=== PATIENT | female | born 1985 | race African-American/Black ===

== ENCOUNTER 2018-04-11 04:30 | Emergency (ER) | payer OTHER ==
[~2018-04-11] VITALS: Ht 167.6 cm; Wt 66.0 kg
[2018-04-11] MEDS ORDERED: ACETAMINOPHEN 325MG TABLET PO PRN (05:15)
[2018-04-11 06:07] LABS: BASOPHILS % 0.4 % (0.0-2.0); EOSINOPHILS % 0.4 % (0.0-5.0); HEMOGLOBIN. 12.6 g/dL (12.0-16.0); LYMPHOCYTES % 29.9 % (20.0-50.0); MEAN CORPUSCULAR HEMOGLOBIN 33.4 pg (28.0-32.0); MEAN CORPUSCULAR VOLUME 95.8 fL (81.0-99.0); MEAN PLATELET VOLUME 6.9 fl (7.4-10.4); MONOCYTES % 6.9 % (2.0-8.0); NEUTROPHILS % 62.4 % (40.0-76.0); PLATELET 246 x1000/uL (130-400); RED BLOOD CELL COUNT 3.76 mill/uL (4.2-5.4); RED CELL DISTRIBUTION WIDTH 12.8 % (11.6-14.6)
[2018-04-11 06:12] LABS: CHLORIDE 106 mEq/L (98-107)
[2018-04-11 06:36] LABS: B-HCG QUANTITATIVE 10809 mIU/mL (<3)
[2018-04-11 07:14] LABS: CLARITY URINE CLOUDY (CLEAR); COLOR URINE DARK YELLOW (YELLOW); KETONES URINE TRACE (NEGATIVE); LEUKOCYTE ESTERASE URINE 1+ (NEGATIVE); NITRITE URINE NEGATIVE (NEGATIVE); OCCULT BLOOD URINE NEGATIVE (NEGATIVE); PH URINE 5.5 (4.5-8.0); PROTEIN URINE 2+ (NEGATIVE); SPECIFIC GRAVITY URINE 1.025 (1.005-1.030)
[2018-04-11 07:30] LABS: *AMPHETAMINES SCREEN URINE NEGATIVE (NEGATIVE); *BARBITURATES SCREEN URINE NEGATIVE (NEGATIVE); *BENZODIAZEPINES SCREEN URINE NEGATIVE (NEGATIVE)
[2018-04-11 07:31] LABS: METHADONE URINE SCREEN NEGATIVE (NEGATIVE); OPIATES URINE SCREEN NEGATIVE (NEGATIVE); PHENCYCLIDINE URINE SCREEN NEGATIVE (NEGATIVE)
[2018-04-11 07:38] LABS: *COCAINE SCREEN URINE PRESUMTIVE POSITIVE (NEGATIVE)
[2018-04-11 07:39] LABS: CANNABINOID URINE SCREEN PRESUMTIVE POSITIVE (NEGATIVE)
[2018-04-11] MEDS ORDERED: ACETAMINOPHEN 325MG TABLET PO ONE (10:45)
[2018-04-11 14:42] VITALS: BP 98/48
== END 2018-04-11 14:44 | disposition home or self-care (01) ==
LOC: ER 04:30
DX: O23.12 Infections of bladder in pregnancy, second trimester (principal); O9A.312 Physical abuse complicating pregnancy, second trimester; F17.200 Nicotine dependence, unspecified, uncomplicated; F12.10 Cannabis abuse, uncomplicated; Z3A.16 16 weeks gestation of pregnancy
CPT/HCPCS: 36415; 76705; 76815; 80305; 81025; 84702; 86850; 86900; 99285

== ENCOUNTER 2020-11-19 05:47 | Observation (INO) | payer OTHER ==
[~2020-11-19] VITALS: Ht 162.6 cm; Wt 72.6 kg
== END 2020-11-19 16:02 | disposition home or self-care (01) ==
LOC: 8 EST LDRP 05:47
PROVIDERS: ADMIT Obstetrics & Gynecology; ATTEND Obstetrics & Gynecology
DX: O36.8120 Decreased fetal movements, second trimester, not applicable or unspecified (principal); Z3A.27 27 weeks gestation of pregnancy; R10.9 Unspecified abdominal pain; O26.892 Other specified pregnancy related conditions, second trimester
CPT/HCPCS: 59025; 76805; 76818; 99281; G0378

== ENCOUNTER 2021-01-23 06:21 | Inpatient (IN) | payer OTHER ==
[~2021-01-23] VITALS: Ht 160 cm; Wt 65.8 kg
[2021-01-23] MEDS ORDERED: METHYLERGONOVINE MALEATE 0.2 MG/ML IM PRN (06:45)
[2021-01-23] MEDS ORDERED: NALOXONE HCL 0.4 MG/ML 1ML VIAL IM PRN (06:45)
[2021-01-23] MEDS ORDERED: LIDOCAINE HCL 1% 20ML VIAL (Pyxis) INJ INFIL SCH (06:45)
[2021-01-23] MEDS ORDERED: PENICILLIN G POTASSIUM 5 MMU in DEXT 5% WATER 100 ML IV NR (07:00)
[2021-01-23] MEDS ORDERED: DEXT 5%/LR + PITOCIN 20UNITS/L 1,000 ML IV SCH ×2 (07:00→11:45)
[2021-01-23 08:20] LABS: BASOPHILS % 0.6 % (0.0-2.0); EOSINOPHILS % 0.5 % (0.0-5.0); HEMATOCRIT. 36.2 % (36.0-48.0); HEMOGLOBIN. 12.2 g/dL (12.0-16.0); LYMPHOCYTES % 17.4 % (20.0-50.0); MEAN CORPUSCULAR HEMOGLOBIN 29.2 pg (28.0-32.0); MEAN CORPUSCULAR VOLUME 86.3 fL (81.0-99.0); MEAN PLATELET VOLUME 7.7 fl (7.4-10.4); MONOCYTES % 8.7 % (2.0-8.0); NEUTROPHILS % 72.8 % (40.0-76.0); PLATELET 316 x1000/uL (130-400); RED BLOOD CELL COUNT 4.19 mill/uL (4.2-5.4); RED CELL DISTRIBUTION WIDTH 15.4 % (11.6-14.6)
[2021-01-23 08:30] LABS: CHLORIDE 108 mEq/L (98-107)
[2021-01-23 08:32] LABS: INR 0.9; PARTIAL THROMBOPLASTIN TIME 28.5 sec (23.4-31.0); PROTHROMBIN TIME 10.2 sec (9.6-11.0)
[2021-01-23] MEDS: LACTATED RINGERS 1,000 ML IV SCH ×2 (08:34→09:44)
[2021-01-23] MEDS ORDERED: AMPICILLIN 2,000 MG in SODIUM CHLORIDE 0.9% 100 ML IV NR (09:00)
[2021-01-23 09:07] LABS: HEPATITIS B SURFACE ANTIGEN NEGATIVE
[2021-01-23] MEDS ORDERED: CEFAZOLIN SODIUM 1000MG/VIAL ONE (09:58)
[2021-01-23] MEDS ORDERED: FENTANYL CITRATE/PF 50MCG/ML 2ML VIAL ONE (09:58)
[2021-01-23] MEDS ORDERED: MORPHINE SULFATE/PF 1MG/ML 10ML AMP ONE (09:58)
[2021-01-23] MEDS ORDERED: MIDAZOLAM HCL 2 MG/2 ML VIAL ONE (10:26)
[2021-01-23] MEDS ORDERED: PHENYLEPHRINE HCL 10 MG/ML 1ML (IV VIAL) IV ONE (10:29)
[2021-01-23 10:58] LABS: CLARITY URINE CLEAR (CLEAR); COLOR URINE YELLOW (YELLOW); KETONES URINE 1+ (NEGATIVE); LEUKOCYTE ESTERASE URINE NEGATIVE (NEGATIVE); NITRITE URINE NEGATIVE (NEGATIVE); OCCULT BLOOD URINE NEGATIVE (NEGATIVE); PH URINE 6.5 (4.5-8.0); PROTEIN URINE NEGATIVE (NEGATIVE); SPECIFIC GRAVITY URINE 1.016 (1.005-1.030)
[2021-01-23] MEDS ORDERED: KETOROLAC 30MG/ML VIAL IV PRN ×2 (11:00→11:45)
[2021-01-23] MEDS ORDERED: MEPERIDINE HCL/PF 25MG/ML CPJ IV PRN (11:00)
[2021-01-23] MEDS ORDERED: DIPHENHYDRAMINE 50MG/ML VIAL IV PRN (11:00)
[2021-01-23] MEDS ORDERED: LABETALOL 5MG/ML SYR 20 MG/4 ML SYRINGE IV PRN (11:00)
[2021-01-23] MEDS ORDERED: HYDROMORPHONE HCL/PF 2MG/ML CPJ IV PRN (11:00)
[2021-01-23] MEDS ORDERED: ONDANSETRON HCL 4MG/2ML INJ IV PRN (11:00)
[2021-01-23] MEDS ORDERED: BUTORPHANOL TARTRATE 2 MG/ML VIAL IM PRN (11:00)
[2021-01-23 11:28] LABS: *AMPHETAMINES SCREEN URINE NEGATIVE (NEGATIVE); CANNABINOID URINE SCREEN NEGATIVE (NEGATIVE); METHADONE URINE SCREEN NEGATIVE (NEGATIVE); OPIATES URINE SCREEN NEGATIVE (NEGATIVE); PHENCYCLIDINE URINE SCREEN NEGATIVE (NEGATIVE)
[2021-01-23 11:29] LABS: *BARBITURATES SCREEN URINE NEGATIVE (NEGATIVE); *BENZODIAZEPINES SCREEN URINE NEGATIVE (NEGATIVE)
[2021-01-23] MEDS ORDERED: PENICILLIN G POTASSIUM 2.5 MMU in DEXTROSE 5% WATER 50 ML IV SCH (11:30)
[2021-01-23 11:33] LABS: *COCAINE SCREEN URINE PRESUMTIVE POSITIVE (NEGATIVE)
[2021-01-23] MEDS ORDERED: IBUPROFEN 400MG TABLET PO PRN (11:45)
[2021-01-23] MEDS ORDERED: RHO(D) IMMUNE GLOBULIN 300 MCG/SYR IM PRN (11:45)
[2021-01-23] MEDS ORDERED: ACETAMINOPHEN WITH CODEINE 300/30MG TABLET PO PRN (11:45)
[2021-01-23] MEDS ORDERED: BISACODYL 10MG SUPP PR PRN (11:45)
[2021-01-23] MEDS ORDERED: DEXT IV NR (12:00)
[2021-01-23] MEDS ORDERED: LACTATED RINGERS IV NR (12:00)
[2021-01-23] MEDS ORDERED: POTASSIUM ACETATE IV NR (12:00)
[2021-01-23] MEDS ORDERED: OXYTOCIN IV NR (12:00)
[2021-01-23 14:00] VITALS: BP 111/75
[2021-01-23] MEDS ORDERED: AMPICILLIN 1,000 MG in SODIUM CHLORIDE 0.9% 50 ML IV SCH (15:00)
[2021-01-23 17:30] VITALS: BP 115/78
[2021-01-23 20:00] VITALS: BP 113/76
[2021-01-24] VITALS: BP 112/78
[2021-01-24 07:01] LABS: BASOPHILS % 0.2 % (0.0-2.0); EOSINOPHILS % 0.2 % (0.0-5.0); HEMATOCRIT. 39.3 % (36.0-48.0); HEMOGLOBIN. 12.8 g/dL (12.0-16.0); LYMPHOCYTES % 13.4 % (20.0-50.0); MEAN CORPUSCULAR HEMOGLOBIN 28.4 pg (28.0-32.0); MEAN CORPUSCULAR VOLUME 87.4 fL (81.0-99.0); MEAN PLATELET VOLUME 7.7 fl (7.4-10.4); MONOCYTES % 8.5 % (2.0-8.0); NEUTROPHILS % 77.7 % (40.0-76.0); PLATELET 304 x1000/uL (130-400); RED CELL DISTRIBUTION WIDTH 15.9 % (11.6-14.6)
[2021-01-24] MEDS ORDERED: FERROUS SULFATE 325MG TABLET PO SCH (07:30)
[2021-01-24 07:51] VITALS: BP 115/80
[2021-01-24 08:00] VITALS: BP 121/74
[2021-01-24] MEDS ORDERED: POTASSIUM CHLORIDE 20MEQ TABLET SR PO SCH (08:30)
[2021-01-24] MEDS ORDERED: PRENATAL VIT/FE FUMARATE/FA TABLET PO SCH (09:00)
[2021-01-24 16:30] VITALS: BP 117/72
[2021-01-24 20:00] VITALS: BP 115/61
[2021-01-24] MEDS: IBUPROFEN 800MG TABLET PO PRN (23:49)
[2021-01-25 04:00] VITALS: BP 121/78
[2021-01-25] MEDS: IBUPROFEN 800MG TABLET PO PRN ×2 (06:19→22:09)
[2021-01-25 07:30] VITALS: BP 124/88
[2021-01-25 16:06] VITALS: BP 120/78
[2021-01-25 20:00] VITALS: BP 122/99
[2021-01-26 04:14] VITALS: BP 123/86
[2021-01-26] MEDS ORDERED: IBUP-2030 PO (06:26)
[2021-01-26 07:30] VITALS: BP 120/84
[2021-02-01 05:08] LABS: COCAINE CONFIRMATION URINE Positive (.)
== END 2021-01-26 16:25 | disposition home or self-care (01) | DRG 540 ==
LOC: 8 EST LDRP 06:21 → OBSVTOIN 06:21 → 8EST 13:00
PROVIDERS: ADMIT Obstetrics & Gynecology; ATTEND Obstetrics & Gynecology
PROC: 10D00Z1 Extraction of Products of Conception, Low, Open Approach (ICD-10-PCS; principal; 2021-01-23)
DX: O32.2XX0 Maternal care for transverse and oblique lie, not applicable or unspecified (principal); O99.324 Drug use complicating childbirth; O77.9 Labor and delivery complicated by fetal stress, unspecified; F14.10 Cocaine abuse, uncomplicated; Z37.0 Single live birth; Z3A.38 38 weeks gestation of pregnancy
CPT/HCPCS: 36415; 76805; 76818; 80051; 80053; 80305; 80353; 81003; 85025; 86592; 86703; 86762; 86850; 86900; 87340; 88307; 99281; G0378; J0290; J0690; J1885; J2250; J2274; J2310; J2370; J2540; J2590; J3010; J3490; J7050; J7060; J7120; J7121; A4315

== ENCOUNTER 2022-01-12 07:41 | Emergency (ER) | payer OTHER ==
[~2022-01-12] VITALS: Ht 152.4 cm; Wt 64.0 kg
[~2022-01-12 07:41] MED LIST: IBUP-2030 PO
[2022-01-12 07:44] VITALS: BP 127/85
[2022-01-12] MEDS ORDERED: HYDROCODONE/ACETAMINOPHEN 5/325MG TABLET PO ONE (08:30)
[2022-01-12 09:43] LABS: BASOPHILS % 0.4 % (0.0-2.0); EOSINOPHILS % 0.1 % (0.0-5.0); HEMATOCRIT. 38.9 % (36.0-48.0); HEMOGLOBIN. 13.4 g/dL (12.0-16.0); LYMPHOCYTES % 19.6 % (20.0-50.0); MEAN CORPUSCULAR HEMOGLOBIN 31.8 pg (28.0-32.0); MEAN CORPUSCULAR VOLUME 92.1 fL (81.0-99.0); MEAN PLATELET VOLUME 6.8 fl (7.4-10.4); NEUTROPHILS % 70.9 % (40.0-76.0); PLATELET 319 x1000/uL (130-400); RED BLOOD CELL COUNT 4.22 mill/uL (4.2-5.4); RED CELL DISTRIBUTION WIDTH 13.4 % (11.6-14.6)
[2022-01-12 09:53] LABS: CHLORIDE 106 mEq/L (98-107)
[2022-01-12 10:02] LABS: HCG SCREEN NEGATIVE
[2022-01-12] MEDS ORDERED: HYDR-4001 MT (12:30)
[2022-01-12] MEDS ORDERED: IBUP-2028 MT (12:30)
== END 2022-01-12 13:57 | disposition home or self-care (01) ==
LOC: ER 07:41
DX: S52.502A Unspecified fracture of the lower end of left radius, initial encounter for closed fracture (principal); X58.XXXA Exposure to other specified factors, initial encounter; Y93.89 Activity, other specified; Y92.89 Other specified places as the place of occurrence of the external cause; Y99.8 Other external cause status
CPT/HCPCS: 29125; 36415; 73100; 73110; 73130; 80053; 84703; 85025; 99284; A4565